=== PATIENT | male | born 1945 | race Caucasian/White ===

== ENCOUNTER 2016-11-27 12:46 | Emergency (ER) | payer MEDICARE, BC ==
[2016-11-27] MEDS ORDERED: Heparin 5,000 UNITS/ML VIAL ONE (13:45)
[2016-11-27 13:52] LABS: #Basophils 0.1 thou/uL (0.0-0.2); #Eosinphils 0.3 thou/uL (0.0-0.7); #Lymphocytes 2.2 thou/uL (1.20-3.40); #Neutrophils 12.4 thou/uL (1.40-6.50); %Basophils 0.6 % (0.0-1.0); %Eosinophils 2.2 % (0.0-10.0); Hematocrit 35.5 % (42.0-52.0); Mean Platelet Volume 6.8 fL (7.4-10.4); Red Blood Cell (RBC) Count 4.06 mill/uL (4.70-6.10)
[2016-11-27] MEDS ORDERED: Heparin 20,000 units/D5W 500 ML ONE (13:52)
[2016-11-27 13:54] LABS: PTT 25.9 SEC (22.9-36.1); Prothrombin Time 16.2 SEC (12.0-14.7)
[2016-11-27 14:03] LABS: ALT (SGPT) 18 U/L (0-55); AST (SGOT) 13 U/L (5-34); Alkaline Phosphatase 158 U/L (40-150); Anion Gap 17 mmol/L (10-20); BUN (Urea Nitrogen) 17 mg/dL (8.4-25.7); Bilirubin, Total 0.6 mg/dL (0.2-1.2); Calc. Creatinine Clearance 0 mL/min (70-130); Calcium 9.9 mg/dL (7.8-10.44); Carbon Dioxide 24 mmol/L (23-31); Chloride 97 mmol/L (98-107); Estimated GFR-MDRD 81; Globulin 3.3 g/dL (2.4-3.5); Protein, Total 7.5 g/dL (5.8-8.1)
--- NOTE | 2016-11-27 15:11 | ERRECORD ---
[facility] EMERGENCY RECORD HPI EXTREMITY (14:10 DHAM) CHIEF COMPLAINT: Patient presents for evaluation of pain, to the left lower leg, Patient presents for evaluation of swelling, to the left lower leg. HISTORIAN: History provided by patient, 2 Days of left calf pain after walking "about 100 yards." He has never had claudication before. Today he awoke to find swelling at the left ankle and mildly to left foot and "my toes were blue.". MECHANISM OF INJURY: Mechanism of injury is unknown. LOCATION: Symptoms are localized, most severe in the left lower leg. QUALITY: really no pain. SEVERITY: Maximum severity of pain rated as 8/10, Current severity of pain rated as 0/10, Pain was while walking yesterday and this morning. TIME COURSE: Gradual onset of symptoms, 2, days priror to arrival, Symptoms are worsening, see above, are intermittent. ASSOCIATED WITH: No associated alcohol use, No associated chills, No associated decreased use, No associated distal injury, No associated distal neuro complaint, No associated erythema, No associated fever, No associated inability to ambulate, No associated inability to bear weight, No associated numbness, No associated open wounds, No associated proximal injury, No associated tingling, No associated warmth, left 5th toe blue this morning. EXACERBATED BY: Patient's condition exacerbated by walking. RELIEVED BY: Patient's condition relieved by rest. ROS (14:20 DHAM) CONSTITUTIONAL: Historian denies chills, denies fever, denies lethargy. ENT: recently was diagnosed with a neck mass and has appt with oncology tomorrow at [facility]. CARDIOVASCULAR: Historian denies chest pain, denies diaphoresis, denies dyspnea on exertion, reports exercise intolerance. no jugular venous distention, Historian denies syncope, denies palpitations. RESPIRATORY: Historian denies cough, denies shortness of breath, denies sputum, denies wheezing. GI: Historian denies abdominal pain, denies diarrhea, denies nausea, denies vomiting. GENITOURINARY MALE: Historian denies dysuria, denies urinary frequency, denies urinary urgency. MUSCULOSKELETAL: Historian denies arthralgias, denies fall, denies injury, denies joint redness, denies joint stiffness, denies joint swelling, reports myalgias. left calf pain with walking but none now. SKIN: Historian denies rash, reports skin changes. NEUROLOGIC: Historian denies confusion, denies dizziness, denies focal weakness, denies gait changes, denies mental status changes, denies paralysis, denies paresthesias, denies sensory changes. &a-1R&a+25V*p+0X*[id number]*c202B*c15G*c2P*p-0X&a-25V&a+1R Name: Luis Antonio Ro : 1945 M71 MedRec: [id number] AcctNum: [id number] Prepared: Sat Nov 27, 2016 22:51 by Interface Page 1 of 5 pMD [facility] EMERGENCY RECORD ENDOCRINE: Historian denies cold intolerance, denies polydipsia. HEMO/LYMPHATIC: Historian denies abnormal blood clotting, denies easy bruising. see ENT above. ALLERGIC/IMMUNOLOGIC: Historian denies eczema, denies hives. PAST MEDICAL HISTORY MEDICAL HISTORY: Flu vaccine up to date, Tetanus not up to date, Pneumococcal vaccine up to date, Past medical history includes gastrointestinal disease, gastroesophageal reflux disease, Past medical history includes history of hyperlipidemia, Past medical history includes history of hypertension. (13:17 RHIC) MALE SURGICAL HISTORY: Surgical history of appendectomy. (13:17 RHIC) PSYCHIATRIC HISTORY: No previous psychiatric history. (13:17 RHIC) SOCIAL HISTORY: Patient denies alcohol use, Patient denies drug use, Patient has no smoking history. (13:17 RHIC) NOTES: I have reviewed the nursing documentation regarding PMHX, social hx, family hx, and surgical history as well as vitals and triage notes and agree. (14:10 DHAM) KNOWN ALLERGIES No Known Drug Allergies CURRENT MEDICATIONS lisinopril: TABLET : Strength - 10 mg : ORAL Patient Dose: unk mg Oral. (13:43 AHOO) Crestor: TABLET : Strength - 10 mg : ORAL Patient Dose: unk Oral. (13:43 AHOO) omeprazole: CAPSULE,DELAYED RELEASE (ENTERIC COATED) : Strength - 10 mg : ORAL Patient Dose: Unknown. (13:43 AHOO) diclofenac sodium: TABLET, DELAYED RELEASE (ENTERIC COATED) : Strength - 75 mg : ORAL Patient Dose: 1 tab(s) Oral 2 times a day (with meals).as needed for pain. (13:43 AHOO) Soma: TABLET : Strength - 350 mg : ORAL Patient Dose: 1 tab(s) Oral 1 to 3 times a day.Muscle relaxant. (13:43 AHOO) Ultram: TABLET : Strength - 50 mg : ORAL Patient Dose: 1-2 tab(s) Oral every 8 hours PRN.for pain. (13:43 AHOO) HYDROcodone-acetaminophen: TABLET : Strength - 10 mg-325 mg : ORAL Patient Dose: 1 cap(s) Oral every 6 hours PRN. (13:44 AHOO) &a-1R&a+25V*p+0X*[id number]*c202B*c15G*c2P*p-0X&a-25V&a+1R Name: Luis Antonio Ro : 1945 M71 MedRec: [id number] AcctNum: [id number] Prepared: Sat Nov 27, 2016 22:51 by Interface Page 2 of 5 pMD [facility] EMERGENCY RECORD VITAL SIGNS VITAL SIGNS: BP: 115/76, Pulse: 70, Resp: 18, Temp: 97.7 (Oral), Pain: 8, O2 sat: 97 on Room Air, Time: 11/27/2016 13:17. (13:17 RHIC) BP: 146/71, Pulse: 70, Resp: 18, Pain: 0, O2 sat: 97 on Room Air, Time: 11/27/2016 14:17. (14:17 AHOO) BP: 136/81, Pulse: 69, Resp: 18, Temp: 98.2 (Oral), Pain: 0, O2 sat: 97 on Room Air, Time: 11/27/2016 14:46. (14:46 AHOO) PHYSICAL EXAM (14:32 DHAM) CONSTITUTIONAL: Vital signs reviewed, Patient afebrile, Pulse normal, Blood pressure normal, Respiratory rate normal, Patient appears non toxic, Patient appears pain free, Patient alert and oriented to person, place and time. HEAD: Head exam included findings of head atraumatic, normocephalic. EYES: Eye exam included findings of eyelids normal to inspection, Pupils equally round and reactive to light, Extraocular muscles intact, Conjunctiva normal, Sclera normal, Fundoscopic exam normal. ENT: ENT exam normal. NECK: Neck exam included findings of normal range of motion, Trachea midline, no meningeal signs. RESPIRATORY CHEST: Respiratory exam included findings of no respiratory distress, Breath sounds clear, No wheezing, No rales, No rhonchi. CARDIOVASCULAR: Cardiovascular exam included findings of heart rate regular rate and rhythm, Heart sounds normal, normal S1, normal S2, no murmurs, no rub, no gallop, Femoral pulses normal, Pedal pulses, I cannot palpate DP or PT bilat. I can Doppler the right DP and PT and left Posterior tib. The left Dorsalis pedis is no dopplerable. see LE. ABDOMEN MALE: Abdominal exam included findings of abdomen nontender, Bowel sounds normal, Liver normal, Spleen normal, no mass, no pulsatile masses, no peritoneal signs, no rigidity, no guarding, no rebound, no ventral hernia. BACK: Back exam included findings of normal inspection, range of motion normal. UPPER EXTREMITY: Upper extremity exam normal. LOWER EXTREMITY: Pt has full pain free ROM at hips, knees, ankles and all toes. His pulses are diffusely decreased and cap refill is 5-6 seconds diffusely in the left foot with palor and cyanosis of toenails. The right foot also has cap refill that is delayed though only 2-3 sec. The left foot does NOT feel cooler than the right and the feet are cool bilat. The left 5th toe is cyanotic with the 4th toe having a small area at distal tip that looks more cyanotic. NONE of these look purpuric. motor and sensory exams normal bilat. Eft calf calf is 36cm and right is 34 at 10 cm below tibial tubercle. NEURO: [place] coma scale 15, Neuro exam findings include patient oriented to person, place and time, Speech normal, Gait normal, Memory normal, Cranial nerves intact, Deep tendon reflexes normal, no &a-1R&a+25V*p+0X*[id number]*c202B*c15G*c2P*p-0X&a-25V&a+1R Name: Luis Antonio Ro : 1945 M71 MedRec: [id number] AcctNum: [id number] Prepared: Desean Nov 27, 2016 22:51 by Interface Page 3 of 5 pMD [facility] EMERGENCY RECORD focal motor deficits, no focal sensory deficits, hard of hearing. SKIN: Skin exam included findings of skin warm, dry, and normal in color, no rash, see above. LYMPHATIC: Lymphatic exam normal. PSYCHIATRIC: Psychiatric exam included findings of patient oriented to person place and time, Normal affect, Judgment normal, Insight normal, Remote memory normal, Recent memory normal. MEDICATION ADMINISTRATION SUMMARY Drug Name: heparin (porcine) intravenous, Dose Ordered: 1000 units/hr, Route: IV Fluid Infusion, Status: Given, Time: 14:04 11/27/2016, Drug Name: heparin (porcine) in NaCl (PF), Dose Ordered: 5000 units, Route: IV Push, Status: Given, Time: 13:50 11/27/2016, Drug Name: Adult Low Dose Aspirin, Dose Ordered: 4 tab(s), Route: Oral, Status: Given, Time: 13:47 11/27/2016, Detailed record available in Medication Service section. DOCTOR NOTES (14:23 DHAM) TEXT: Wells score for DVT is 3 (if we say that pt does have an active cancer, but this is not certain at this time per patient). His exam looks primarily venous with calf enlargement and collateral veins. However, his left dorsalis pedis is absent and the foot has decreased capillary refill and left 5th toe suggests arterial occlusion. The absence of pain would certainly suggest this is not an acute arterial occlusion. We have covered with ASA and heparin 5000 bolus/1000 per hour. I have discussed the pt with Dr Noland at 1325 who accepts the pt in transfer to [facility]. He asks that we do a CTA of the leg as well. This was ordered but I have received a call from Dr. Cox who reports that he doesn't think our CT can accomplish this reliably and recommends that we get it done in [place]. Pt and family aware. Wells score for DVT is 3 (if we say that pt does have an active cancer, but this is not certain at this time per patient). His exam looks primarily venous with calf enlargement and collateral veins. However, his left dorsalis pedis is absent and the foot has decreased capillary refill and left 5th toe suggests arterial occlusion. The absence of pain would certainly suggest this is not an acute arterial occlusion. We have covered with ASA and heparin 5000 bolus/1000 per hour. I have discussed the pt with Dr Noland at. PROBLEM LIST No recorded problems DIAGNOSIS (14:50 DHAM) FINAL: PRIMARY: deep venous thrombosis, ADDITIONAL: peripheral artery disease. &a-1R&a+25V*p+0X*[id number]*c202B*c15G*c2P*p-0X&a-25V&a+1R Name: Luis Antonio Ro : 1945 M71 MedRec: [id number] AcctNum: [id number] Prepared: Desean Nov 27, 2016 22:51 by Interface Page 4 of 5 pMD [facility] EMERGENCY RECORD PRESCRIPTION No recorded prescriptions DISPOSITION PATIENT: Disposition Type: Transfer, Disposition: Transfer to [facility]. (14:50 DHAM) Patient left the department. (15:03 [facility]) Antonio: AHOO=CORNELIO Jose, February DHAM=MD Alyx, Karlos IC=YAMILETH Flores, Emily &a-1R&a+25V*p+0X*[id number]*c202B*c15G*c2P*p-0X&a-25V&a+1R Name: Luis Antonio Ro : 1945 M71 MedRec: [id number] AcctNum: [id number] Prepared: Desean Nov 27, 2016 22:51 by Interface Page 5 of 5 pMD MTDD
--- NOTE | 2016-11-27 15:16 | PICIS ---
[facility] EMERGENCY RECORD TRIAGE ([facility] Nov 27, 2016 12:57 RHIC) TRIAGE NOTES: LEFT LEG PAIN X 2 DAYS. SWELLING TODAY. ([facility] Nov 27, 2016 12:57 RHIC) PATIENT: NAME: Luis Antonio Ro, AGE: 71, GENDER: male, : Tue1945, TIME OF GREET: Sat Nov 27, 2016 12:48, PREFERRED LANGUAGE: Czech, ETHNICITY: Not or , ECODE BILLING MAP: [facility], SSN: [id number], Zip Code: [address], PHONE: , , , PERSON ID: [id number], PAYMENT: [employer] Medicare, PCP: DANIEL. ([facility] Nov 27, 2016 12:57 RHIC) KG WEIGHT: 77.1 (est.). (13:16 RHIC) COMPLAINT: Left Leg Pain. ([facility] Nov 27, 2016 12:57 RHIC) ADMISSION: URGENCY: 4 Non Urgent, ADMISSION SOURCE: Home, TRANSPORT: CAR, BED: ER -02. ([facility] Nov 27, 2016 12:57 RHIC) IMMUNIZATIONS: Flu vaccine up to date, Tetanus immunization up to date, Pneumococcal vaccine up to date. (13:17 RHIC) SIRS SCORING: Heart Rate 55-109 (0), Temp range 96.8-101.1 (0), respiratory rate 12-24 (0), Mental Status altered: no (0). (13:17 RHIC) TRIAGE SCREENING: Patient denies suicidal ideation, Patient denies presence of domestic violence. (13:17 RHIC) TREATMENTS IN PROGRESS: Treatments given Prehospital: VICODIN X 2. (13:17 RHIC) PROVIDERS: TRIAGE NURSE: Emily Flores RN. ([facility] Nov 27, 2016 12:57 RHIC) PREVIOUS VISIT ALLERGIES: No Known Drug Allergies. ([facility] Nov 27, 2016 12:57 RHIC) No Known Drug Allergies. (13:17 RHIC) KNOWN ALLERGIES No Known Drug Allergies CURRENT MEDICATIONS lisinopril: TABLET : Strength - 10 mg : ORAL Patient Dose: unk mg Oral. (13:43 AHOO) Crestor: TABLET : Strength - 10 mg : ORAL Patient Dose: unk Oral. (13:43 AHOO) omeprazole: CAPSULE,DELAYED RELEASE (ENTERIC COATED) : Strength - 10 mg : ORAL Patient Dose: Unknown. (13:43 AHOO) diclofenac sodium: TABLET, DELAYED RELEASE (ENTERIC COATED) : Strength - 75 mg : ORAL Patient Dose: 1 tab(s) Oral 2 times a day (with meals).as needed for pain. (13:43 AHOO) Soma: TABLET : Strength - 350 mg : ORAL Patient Dose: 1 tab(s) Oral 1 to 3 times a day.Muscle relaxant. (13:43 AHOO) &a-1R&a+25V*p+0X*c8942S*c202B*c15G*c2P*p-0X&a-25V&a+1R Name: Luis Antonio Ro : 1945 M71 MedRec: [id number] AcctNum: [id number] Prepared: Sat Nov 27, 2016 22:57 by Interface Page [address] [facility] EMERGENCY RECORD Ultram: TABLET : Strength - 50 mg : ORAL Patient Dose: 1-2 tab(s) Oral every 8 hours PRN.for pain. (13:43 AHOO) HYDROcodone-acetaminophen: TABLET : Strength - 10 mg-325 mg : ORAL Patient Dose: 1 cap(s) Oral every 6 hours PRN. (13:44 AHOO) VITAL SIGNS VITAL SIGNS: BP: 115/76, Pulse: 70, Resp: 18, Temp: 97.7 (Oral), Pain: 8, O2 sat: 97 on Room Air, Time: 11/27/2016 13:17. (13:17 RHIC) BP: 146/71, Pulse: 70, Resp: 18, Pain: 0, O2 sat: 97 on Room Air, Time: 11/27/2016 14:17. (14:17 AHOO) BP: 136/81, Pulse: 69, Resp: 18, Temp: 98.2 (Oral), Pain: 0, O2 sat: 97 on Room Air, Time: 11/27/2016 14:46. (14:46 AHOO) NURSING ASSESSMENT: EXTREMITY LOWER (13:00 RHIC) CONSTITUTIONAL: Patient arrives ambulatory, Gait steady, History obtained from patient, Patient appears comfortable, Patient cooperative, Patient alert, Oriented to person, place and time, Skin warm, Skin dry, Skin normal in color, Mucous membranes pink, Mucous membranes moist. PAIN: to the left lower leg. LEFT LOWER EXTREMITY: Left lower extremity assessment findings include capillary refill greater than 2 seconds, 5-6 SEC, Skin color, blue, to TOES, Skin temperature warm, Distal sensation intact, Muscle tone normal, muscle strength 0, dorsalis pedis pulse is absent, Leg circumference: 34. RIGHT LOWER EXTREMITY: Right lower extremity assessment findings include capillary refill less than 2 seconds, Skin color normal, Skin temperature warm, Distal sensation intact, Muscle tone normal, dorsalis pedis pulse is +2, Leg circumference: 36. NURSING ASSESSMENT: FALL RISK (14:21 AHOO) FALL RISK: Total score 0. HENDRICH II FALL RISK: male(1), Total score 1. NURSING ASSESSMENT: SKIN (13:26 AHOO) CONSTITUTIONAL: Patient arrives ambulatory, Gait steady, History obtained from patient, Patient appears comfortable, Patient cooperative, Patient alert, Oriented to person, place and time, Skin warm, Skin dry, Skin, with peripheral cyanosis, Mucous membranes pink, Mucous membranes moist, Patient is well-groomed. PAIN: aching pain, constant, on a scale 0-10 patient rates pain as 8. SKIN: Skin assessment findings include skin warm, Skin dry, Skin, with peripheral cyanosis. JOSEE SCALE: (4) Sensory perception has no impairment, (4) Skin &a-1R&a+25V*p+0X*z7417T*c202B*c15G*c2P*p-0X&a-25V&a+1R Name: Luis Antonio Ro : 1945 M71 MedRec: [id number] AcctNum: [id number] Prepared: Sat Nov 27, 2016 22:57 by Interface Page [address] [facility] EMERGENCY RECORD is rarely moist, (4) Patient walks frequently, (4) No mobility limitations, (4) Excellent Nutrition, (3) Patient has no apparent problem moving, Josee Risk Total: 23. NURSING PROCEDURE: BEDSIDE SIRS TESTING (13:25 AHOO) SCORES: Heart Rate 55-109 (0), Temp range 96.8-101.1 (0), respiratory rate 12-24 (0), Latest WBC 3-14.9 (0), Mental Status altered: no (0), Infection or Suspected Infection: No. Heart Rate 55-109 (0), Temp range 96.8-101.1 (0), respiratory rate 12-24 (0), Latest WBC 15-19.9 (1), Mental Status altered: no (0), Infection or Suspected Infection: No. NURSING PROCEDURE: IV PATIENT IDENITIFIER: Patient actively involved in identification process, Patient's identity verified by patient stating name, Patient's identity verified by patient stating date, Patient's identity verified by hospital ID malik, Patient's identity verified by family member. (13:35 AHOO) IV SITE 1: IV therapy indicated for medication administration, IV established, to the left antecubital, using an 18 gauge catheter, in one attempt, Saline lock established, Flushed with normal saline (mls): 10ML, Labs drawn at time of placement, labeled in the presence of the patient and sent to lab. (13:35 AHOO) FOLLOW-UP SITE 1: After procedure, 2x2 dressing applied, After procedure, no drainage at IV site, After procedure, no swelling at IV site, After procedure, no redness at IV site, Notes: IV PATENT AND INFUSING UPON TRANSFER. (14:53 AHOO) NURSING PROCEDURE: TRANSFER TRANSFER: Reason for transfer need for specialized care, Diagnosis: ISCHEMIC LIMB, Accepting institution: [facility], Accepting physician: DR NOLAND, Referring physician: DR COLON, Transported by urgent ambulance, accompanied by emergency medical services personnel, Summary of Care printed, Copy of patient record prepared for receiving facility, Copy of diagnostic studies, Medication reconciliation form prepared and sent to receiving facility, Patient consent for transfer signed, Family member contacted, PT AT BEDSIDE AND NOTIFIED., Notes: 1323 CALLED TRANSFER CENTER AND SPOKE WITH FRANCESCA, 1328 DR NOLAND ACCEPTED, 1328 ACCEPTING AD IS [facility], DELAY IN CALLING EMS AFTER MD GOT ACCEPTANCE HE ORDERED MULTIPLE TESTS AND MEDS TO GIVE. 1356 CALLED EMS SPOKE WITH LISA THEY DO NOT HAVE A TRUCK AVAILABLE AT THIS TIME. 1425 CALLED EMS THEY SAID THEY SENT A TRUCK AND IT SHOULD BE HERE SOON ETA UNKNOWN AT THIS TIME. (14:22 AHOO) Notes: 1447 EMS ARRIVED, 1457 EMS LEFT WITH THE PT. (14:57 AHOO) Report called to receiving facility, IDA CARSON, Provided opportunity to answer questions, Bed assigned ER. (15:00 AHOO) ORDER DETAILS &a-1R&a+25V*p+0X*p4833T*c202B*c15G*c2P*p-0X&a-25V&a+1R Name: Luis Antonio Ro : 1945 M71 MedRec: [id number] AcctNum: [id number] Prepared: Sat Nov 27, 2016 22:57 by Interface Page [address] [facility] EMERGENCY RECORD Order Name: CBC with Differential, Status: Active, Time: 13:25 11/27/2016, User: MONA, - Ordered for: MD Colon Darren, - Entered by: MD Colon Darren - Sat Nov 27, 2016 13:25, - Quantity: 1, Order Name: Comprehensive Metabolic Panel, Status: Active, Time: 13:25 11/27/2016, User: MONA, - Ordered for: MD Colon Darren, - Entered by: MD Colon Darren - Sat Nov 27, 2016 13:25, - Quantity: 1, Order Name: CTA Angio Lwr Ext Lt W WO, Status: Canceled, Time: 14:16 11/27/2016, User: System, - Ordered for: MD Colon Darren, - Entered by: MD Colon Darren - Sat Nov 27, 2016 14:05, - Quantity: 1, Order Name: D-Dimer (Quantitative), Status: Active, Time: 13:25 11/27/2016, User: MONA, - Ordered for: MD Colon Darren, - Entered by: MD Colon Darren - Sat Nov 27, 2016 13:25, - Quantity: 1, Order Name: Lactic Acid with repeat, Status: Active, Time: 13:25 11/27/2016, User: MONA, - Ordered for: MD Colon Darren, - Entered by: MD Colon Darren - Sat Nov 27, 2016 13:25, - Quantity: 1, Order Name: Protime with INR, Status: Active, Time: 13:25 11/27/2016, User: MONA, - Ordered for: MD Colon Darren, - Entered by: MD Colon Darren - Sat Nov 27, 2016 13:25, - Quantity: 1, Order Name: PTT, Status: Active, Time: 13:25 11/27/2016, User: MONA, - Ordered for: MD Colon Darren, - Entered by: MD Colon Darren - Sat Nov 27, 2016 13:25, - Quantity: 1, Order Name: SALINE LOCK, Status: Done, Time: 13:41 11/27/2016, User: NOEMY, - Ordered for: MD Colon Darren, - Entered by: MD Colon Darren - Sat Nov 27, 2016 13:25, - Quantity: 1. MEDICATION ADMINISTRATION SUMMARY Drug Name: heparin (porcine) intravenous, Dose Ordered: 1000 units/hr, Route: IV Fluid Infusion, Status: Given, Time: 14:04 11/27/2016, Drug Name: heparin (porcine) in NaCl (PF), Dose Ordered: 5000 units, Route: IV Push, Status: Given, Time: 13:50 11/27/2016, Drug Name: Adult Low Dose Aspirin, Dose Ordered: 4 tab(s), Route: Oral, Status: Given, Time: 13:47 11/27/2016, Detailed record available &a-1R&a+25V*p+0X*g1902E*c202B*c15G*c2P*p-0X&a-25V&a+1R Name: Luis Antonio Ro : 1945 M71 MedRec: [id number] AcctNum: [id number] Prepared: Sat Nov 27, 2016 22:57 by Interface Page [address] [facility] EMERGENCY RECORD in Medication Service section. MEDICATION SERVICE Adult Low Dose Aspirin: Order: Adult Low Dose Aspirin (aspirin) - Dose: 4 tab(s) : Oral Schedule: Now Ordered by: Karlos Colon MD Entered by: Karlos Colon MD Sat Nov 27, 2016 13:34 , Acknowledged by: Radha Jose LVN Sat Nov 27, 2016 13:44 Documented as given by: Radha Jose LVN Sat Nov 27, 2016 13:47 Patient, Medication, Dose, Route and Time verified prior to administration. Amount given: 4 TABS, Correct patient, time, route, dose and medication confirmed prior to administration, Patient advised of actions and side-effects prior to administration, Allergies confirmed and medications reviewed prior to administration, Patient in position of comfort, Side rails up, Cart in lowest position, Family at bedside, I VERIFIED WITH ER MD THAT HE WANTS BABY ASA 81MG 4 TABS PO. heparin (porcine) in NaCl (PF): Order: heparin (porcine) in NaCl (PF) (heparin sodium,porcine/0.9 % sodium chloride/preservative free) - Dose: 5000 units : IV Push Schedule: Now Ordered by: Karlos Colon MD Entered by: Karlos Colon MD Sat Nov 27, 2016 13:30 , Acknowledged by: Radha Jose LVN Sat Nov 27, 2016 13:44 Documented as given by: Radha Jose LVN Sat Nov 27, 2016 13:50 Patient, Medication, Dose, Route and Time verified prior to administration. Amount given: 5000UNITS, IV SITE #1 IVP, initial medication, Slowly, Awake and alert- acceptable, Catheter placement confirmed via flush prior to administration, IV site without signs or symptoms of infiltration during medication administration, No swelling during administration, No drainage during administration, IV flushed after administration, Correct patient, time, route, dose and medication confirmed prior to administration, Patient advised of actions and side-effects prior to administration, Allergies confirmed and medications reviewed prior to administration, Patient in position of comfort, Side rails up, Cart in lowest position, Family at bedside, Co-signed by: Emily Flores RN Sat Nov 27, 2016 14:05. : Follow Up : Response assessment performed, No signs or symptoms of allergic reaction noted, _IV SITE #1:_. (14:50 AHOO) heparin (porcine) intravenous: Order: heparin (porcine) intravenous (heparin sodium,porcine) - Dose: 1000 units/hr : IV Fluid Infusion Schedule: Now Ordered by: Karlos Colon MD Entered by: Karlos Colon MD Sat Nov 27, 2016 13:33 , Acknowledged by: Radha Jose LVN Sat Nov 27, 2016 13:44 Documented as given by: Emily Flores RN Sat Nov 27, 2016 14:04 Patient, Medication, Dose, Route and Time verified prior to &a-1R&a+25V*p+0X*v6117Y*c202B*c15G*c2P*p-0X&a-25V&a+1R Name: Luis Antonio Ro : 1945 M71 MedRec: [id number] AcctNum: [id number] Prepared: Sat Nov 27, 2016 22:57 by Interface Page [address] [facility] EMERGENCY RECORD administration. IV SITE #1 IVPB or drip, Catheter placement confirmed via flush prior to administration, IV site without signs or symptoms of infiltration during medication administration, No swelling during administration, No drainage during administration, IV flushed after administration, Correct patient, time, route, dose and medication confirmed prior to administration, Patient advised of actions and side-effects prior to administration, Allergies confirmed and medications reviewed prior to administration, Patient in position of comfort, Side rails up, Cart in lowest position, Family at bedside, Co-signed by: aRdha Jose LVN Sat Nov 27, 2016 14:05. : Follow Up : Response assessment performed, No signs or symptoms of allergic reaction noted, _IV SITE #1:_, Medication infusion continued upon transfer from emergency department, on Sat Nov 27, 2016 14:52, 50 minutes, ., Total amount infused: 21CC. (14:52 AHOO) HPI EXTREMITY (14:10 DHAM) CHIEF COMPLAINT: Patient presents for evaluation of pain, to the left lower leg, Patient presents for evaluation of swelling, to the left lower leg. HISTORIAN: History provided by patient, 2 Days of left calf pain after walking "about 100 yards." He has never had claudication before. Today he awoke to find swelling at the left ankle and mildly to left foot and "my toes were blue.". MECHANISM OF INJURY: Mechanism of injury is unknown. LOCATION: Symptoms are localized, most severe in the left lower leg. QUALITY: really no pain. SEVERITY: Maximum severity of pain rated as 8/10, Current severity of pain rated as 0/10, Pain was while walking yesterday and this morning. TIME COURSE: Gradual onset of symptoms, 2, days priror to arrival, Symptoms are worsening, see above, are intermittent. ASSOCIATED WITH: No associated alcohol use, No associated chills, No associated decreased use, No associated distal injury, No associated distal neuro complaint, No associated erythema, No associated fever, No associated inability to ambulate, No associated inability to bear weight, No associated numbness, No associated open wounds, No associated proximal injury, No associated tingling, No associated warmth, left 5th toe blue this morning. EXACERBATED BY: Patient's condition exacerbated by walking. RELIEVED BY: Patient's condition relieved by rest. ROS (14:20 DHAM) CONSTITUTIONAL: Historian denies chills, denies fever, denies lethargy. ENT: recently was diagnosed with a neck mass and has appt with oncology tomorrow at [facility]. CARDIOVASCULAR: Historian denies chest pain, denies diaphoresis, &a-1R&a+25V*p+0X*s9501S*c202B*c15G*c2P*p-0X&a-25V&a+1R Name: Luis Antonio Ro : 1945 M71 MedRec: [id number] AcctNum: [id number] Prepared: Sat Nov 27, 2016 22:57 by Interface Page [address] [facility] EMERGENCY RECORD denies dyspnea on exertion, reports exercise intolerance. no jugular venous distention, Historian denies syncope, denies palpitations. RESPIRATORY: Historian denies cough, denies shortness of breath, denies sputum, denies wheezing. GI: Historian denies abdominal pain, denies diarrhea, denies nausea, denies vomiting. GENITOURINARY MALE: Historian denies dysuria, denies urinary frequency, denies urinary urgency. MUSCULOSKELETAL: Historian denies arthralgias, denies fall, denies injury, denies joint redness, denies joint stiffness, denies joint swelling, reports myalgias. left calf pain with walking but none now. SKIN: Historian denies rash, reports skin changes. NEUROLOGIC: Historian denies confusion, denies dizziness, denies focal weakness, denies gait changes, denies mental status changes, denies paralysis, denies paresthesias, denies sensory changes. ENDOCRINE: Historian denies cold intolerance, denies polydipsia. HEMO/LYMPHATIC: Historian denies abnormal blood clotting, denies easy bruising. see ENT above. ALLERGIC/IMMUNOLOGIC: Historian denies eczema, denies hives. PAST MEDICAL HISTORY MEDICAL HISTORY: Flu vaccine up to date, Tetanus not up to date, Pneumococcal vaccine up to date, Past medical history includes gastrointestinal disease, gastroesophageal reflux disease, Past medical history includes history of hyperlipidemia, Past medical history includes history of hypertension. (13:17 RHIC) MALE SURGICAL HISTORY: Surgical history of appendectomy. (13:17 RHIC) PSYCHIATRIC HISTORY: No previous psychiatric history. (13:17 RHIC) SOCIAL HISTORY: Patient denies alcohol use, Patient denies drug use, Patient has no smoking history. (13:17 RHIC) NOTES: I have reviewed the nursing documentation regarding PMHX, social hx, family hx, and surgical history as well as vitals and triage notes and agree. (14:10 DHAM) PHYSICAL EXAM (14:32 DHAM) CONSTITUTIONAL: Vital signs reviewed, Patient afebrile, Pulse normal, Blood pressure normal, Respiratory rate normal, Patient appears non toxic, Patient appears pain free, Patient alert and oriented to person, place and time. HEAD: Head exam included findings of head atraumatic, normocephalic. EYES: Eye exam included findings of eyelids normal to inspection, Pupils equally round and reactive to light, Extraocular muscles intact, Conjunctiva normal, Sclera normal, Fundoscopic exam normal. ENT: ENT exam normal. NECK: Neck exam included findings of normal range of motion, &a-1R&a+25V*p+0X*n7108S*c202B*c15G*c2P*p-0X&a-25V&a+1R Name: Luis Antonio Ro : 1945 M71 MedRec: [id number] AcctNum: [id number] Prepared: Sat Nov 27, 2016 22:57 by Interface Page [address] [facility] EMERGENCY RECORD Trachea midline, no meningeal signs. RESPIRATORY CHEST: Respiratory exam included findings of no respiratory distress, Breath sounds clear, No wheezing, No rales, No rhonchi. CARDIOVASCULAR: Cardiovascular exam included findings of heart rate regular rate and rhythm, Heart sounds normal, normal S1, normal S2, no murmurs, no rub, no gallop, Femoral pulses normal, Pedal pulses, I cannot palpate DP or PT bilat. I can Doppler the right DP and PT and left Posterior tib. The left Dorsalis pedis is no dopplerable. see LE. ABDOMEN MALE: Abdominal exam included findings of abdomen nontender, Bowel sounds normal, Liver normal, Spleen normal, no mass, no pulsatile masses, no peritoneal signs, no rigidity, no guarding, no rebound, no ventral hernia. BACK: Back exam included findings of normal inspection, range of motion normal. UPPER EXTREMITY: Upper extremity exam normal. LOWER EXTREMITY: Pt has full pain free ROM at hips, knees, ankles and all toes. His pulses are diffusely decreased and cap refill is 5-6 seconds diffusely in the left foot with palor and cyanosis of toenails. The right foot also has cap refill that is delayed though only 2-3 sec. The left foot does NOT feel cooler than the right and the feet are cool bilat. The left 5th toe is cyanotic with the 4th toe having a small area at distal tip that looks more cyanotic. NONE of these look purpuric. motor and sensory exams normal bilat. Eft calf calf is 36cm and right is 34 at 10 cm below tibial tubercle. NEURO: Yony coma scale 15, Neuro exam findings include patient oriented to person, place and time, Speech normal, Gait normal, Memory normal, Cranial nerves intact, Deep tendon reflexes normal, no focal motor deficits, no focal sensory deficits, hard of hearing. SKIN: Skin exam included findings of skin warm, dry, and normal in color, no rash, see above. LYMPHATIC: Lymphatic exam normal. PSYCHIATRIC: Psychiatric exam included findings of patient oriented to person place and time, Normal affect, Judgment normal, Insight normal, Remote memory normal, Recent memory normal. EVENTS TRANSFER: Triage to Emergency Emergency Room -02. (Sat Nov 27, 2016 12:57 RHIC) Removed from Emergency Emergency Room -02. (15:03 [facility]) O2SAT INTERPRETATION (14:32 [facility]) O2SAT: Single pulse oximetry, Oxygen saturation 97%, on room air, Oxygen saturation interpretation: Normal, No intervention required. DOCTOR NOTES (14:23 DHAM) TEXT: Wells score for DVT is 3 (if we say that pt does have &a-1R&a+25V*p+0X*p3383C*c202B*c15G*c2P*p-0X&a-25V&a+1R Name: Luis Antonio Ro : 1945 M71 MedRec: [id number] AcctNum: [id number] Prepared: Sat Nov 27, 2016 22:57 by Interface Page [address] [facility] EMERGENCY RECORD an active cancer, but this is not certain at this time per patient). His exam looks primarily venous with calf enlargement and collateral veins. However, his left dorsalis pedis is absent and the foot has decreased capillary refill and left 5th toe suggests arterial occlusion. The absence of pain would certainly suggest this is not an acute arterial occlusion. We have covered with ASA and heparin 5000 bolus/1000 per hour. I have discussed the pt with Dr Noland at 1325 who accepts the pt in transfer to [facility]. He asks that we do a CTA of the leg as well. This was ordered but I have received a call from Dr. Cox who reports that he doesn't think our CT can accomplish this reliably and recommends that we get it done in [place]. Pt and family aware. Wells score for DVT is 3 (if we say that pt does have an active cancer, but this is not certain at this time per patient). His exam looks primarily venous with calf enlargement and collateral veins. However, his left dorsalis pedis is absent and the foot has decreased capillary refill and left 5th toe suggests arterial occlusion. The absence of pain would certainly suggest this is not an acute arterial occlusion. We have covered with ASA and heparin 5000 bolus/1000 per hour. I have discussed the pt with Dr Noland at. PROBLEM LIST No recorded problems DIAGNOSIS (14:50 DHAM) FINAL: PRIMARY: deep venous thrombosis, ADDITIONAL: peripheral artery disease. DISPOSITION PATIENT: Disposition Type: Transfer, Disposition: Transfer to [facility]. (14:50 DHAM) Patient left the department. (15:03 AHOO) PRESCRIPTION No recorded prescriptions IMAGING CONSENTS: Image captured from scanner. (14:57 AHOO) *MEMORANDUM OF TRANSFER: Image captured from scanner. (14:58 AHOO) PHYSICIAN CERTIFICATION STATEMENT: Image captured from scanner. (14:58 AHOO) *SUPPLY CHARGE SHEET: Image captured from scanner. (14:58 AHOO) ADMIN (22:50 DHAM) DIGITAL SIGNATURE: MD Alyx, Karlos. RESULTS LABORATORY: Comprehensive Metabolic Panel Collection DT: Sat Nov 27, 2016 13:47, &a-1R&a+25V*p+0X*k3778I*c202B*c15G*c2P*p-0X&a-25V&a+1R Name: Luis Antonio Ro : 1945 M71 MedRec: [id number] AcctNum: [id number] Prepared: [place] Nov 27, 2016 22:57 by Interface Page [address] [facility] EMERGENCY RECORD *Sodium 134 - L mmol/L, Range (136-145), Potassium 4.2 mmol/L, Range (3.5-5.1), *Chloride 97 - L mmol/L, Range (98-107), Carbon Dioxide 24 mmol/L, Range (23-31), Anion Gap 17 mmol/L, Range (10-20), BUN (Urea Nitrogen) 17 mg/dL, Range (8.4-25.7), Creatinine 0.92 mg/dL, Range (0.7-1.3), Estimated GFR-MDRD 81 , Reference Range for Estimated GFR: Greater than 90, mL/min/1.73 m2 NOTE: The MDRD equation has not been validated for use, with the elderly (over 70 years of age), women, patients with, serious comorbid condition or persons with extremes of body size, muscle, mass, or nutritional status. , *Glucose 248 - H mg/dL, Range (80-115), Calcium 9.9 mg/dL, Range (7.8-10.44), Bilirubin, Total 0.6 mg/dL, Range (0.2-1.2), Protein, Total 7.5 g/dL, Range (5.8-8.1), NOTE: Plasma values are generally 0.3 to 0.5 g/dL higher than serum values, due to the presence of fibrinogen. , Albumin 4.2 g/dL, Range (3.4-4.8), Globulin 3.3 g/dL, Range (2.4-3.5), Alb/Glob Ratio 1.3 g/dL, Range (1.2-2.2), *Alkaline Phosphatase 158 - H U/L, Range (40-150), AST (SGOT) 13 U/L, Range (5-34), ALT (SGPT) 18 U/L, Range (0-55). (14:08 [facility]) D-Dimer (Quantitative) Collection DT: [facility] Nov 27, 2016 13:47, See comment below , Anticoagulant? NONE Medical Necessity SUSPECT COAGULOPATHY . (14:08 [facility]) PTT Collection DT: [facility] Nov 27, 2016 13:47, See comment below , Anticoagulant? NONE Medical Necessity SUSPECT COAGULOPATHY , PTT 25.9 SEC, Range (22.9-36.1). (14:08 [facility]) Protime with INR Collection DT: [facility] Nov 27, 2016 13:47, See comment below , Anticoagulant? NONE Medical Necessity SUSPECT COAGULOPATHY , *Prothrombin Time 16.2 - H SEC, Range (12.0-14.7), INR-International Normal Ratio 1.3 , ATTENTION: READ CAREFULLY , The, recommended therapeutic ranges for oral anticoagulant treatments are: , , Low Intensity: 1.5 - 2.0 Moderate Intensity: 2.0, - 3.0 High Intensity (1): 2.5 - 3.5 &a-1R&a+25V*p+0X*[id number]*c202B*c15G*c2P*p-0X&a-25V&a+1R Name: Luis Antonio Ro : 1945 M71 MedRec: [id number] AcctNum: [id number] Prepared: [facility] Nov 27, 2016 22:57 by Interface Page [address] [facility] EMERGENCY RECORD High, Intensity (2): 3.0 - 4.0 CRITICAL: >, 4.0 . (14:08 [facility]) CBC with Differential Collection DT: [facility] Nov 27, 2016 13:47, *White Blood Cell (WBC) Count 16.0 - H thou/uL, Range (4.8-10.8), *Red Blood Cell (RBC) Count 4.06 - L mill/uL, Range (4.70-6.10), *Hemoglobin 11.7 - L g/dL, Range (14.0-18.0), *Hematocrit 35.5 - L %, Range (42.0-52.0), Mean Corpuscular Volume 87.5 fl, Range (80.0-94.0), Mean Corpuscular Hemoglobin 28.8 pg, Range (27.0-31.0), Mean Corpuscular HGB CONC 32.9 g/dL, Range (32.0-36.0), RBC Distribution Width 12.1 %, Range (11.5-14.5), Platelet Count 226 thou/uL, Range (130-400), *Mean Platelet Volume 6.8 - L fL, Range (7.4-10.4), *%Neutrophils 77.6 - H %, Range (42.0-75.0), *%Lymphocytes 13.7 - L %, Range (21.0-51.0), %Monocytes 6.0 %, Range (0.0-10.0), %Eosinophils 2.2 %, Range (0.0-10.0), %Basophils 0.6 %, Range (0.0-1.0), *#Neutrophils 12.4 - H thou/uL, Range (1.40-6.50), #Lymphocytes 2.2 thou/uL, Range (1.20-3.40), *#Monocytes 1.0 - H thou/uL, Range (0.11-0.59), #Eosinphils 0.3 thou/uL, Range (0.0-0.7), #Basophils 0.1 thou/uL, Range (0.0-0.2). (14:08 [facility]) Lactic Acid for Sepsis Collection DT: Sat Nov 27, 2016 14:04, Lactic Acid - Sepsis 1.0 mmol/L, Range (0.5-2.2). (14:51 OO) D-Dimer (Quantitative) Collection DT: Sat Nov 27, 2016 13:47, See comment below , Anticoagulant? NONE Medical Necessity SUSPECT COAGULOPATHY , *D-Dimer Test Greater than 20.00 *mcg/mL, * - H , Range (0.27-0.43), * Reference Range Units: mcg/mL of fibrinogen equivalent, units(FEU) Based upon a retrospective study of [facility] patients in March 2006, a result of Less than 0.44 mcg/mL FEU is, predictive of the absence of a DVT or PE. . (14:54 OO) PTT Collection DT: [facility] Nov 27, 2016 13:47, See comment below , Anticoagulant? NONE Medical Necessity SUSPECT COAGULOPATHY , PTT 25.9 SEC, Range (22.9-36.1). (14:54 OO) Protime with INR Collection DT: [facility] Nov 27, 2016 13:47, See comment below , Anticoagulant? NONE Medical Necessity SUSPECT COAGULOPATHY , *Prothrombin Time 16.2 - H SEC, Range (12.0-14.7), INR-International Normal Ratio 1.3 , ATTENTION: READ CAREFULLY , &a-1R&a+25V*p+0X*g6832W*c202B*c15G*c2P*p-0X&a-25V&a+1R Name: Luis Antonio Ro : 1945 M71 MedRec: [id number] AcctNum: [id number] Prepared: [facility] Nov 27, 2016 22:57 by Interface Page [address] [facility] EMERGENCY RECORD The, recommended therapeutic ranges for oral anticoagulant treatments are: , , Low Intensity: 1.5 - 2.0 Moderate Intensity: 2.0, - 3.0 High Intensity (1): 2.5 - 3.5 High, Intensity (2): 3.0 - 4.0 CRITICAL: >, 4.0 . (14:54 [facility]) Antonio: AHOO=CORNELIO Jose, February DHAM=MD Alyx, Karlos RHIC=YAMILETH Flores, Emily &a-1R&a+25V*p+0X*[id number]*c202B*c15G*c2P*p-0X&a-25V&a+1R Name: Luis Antonio Ro : 1945 M71 MedRec: [id number] AcctNum: [id number] Prepared: [facility] Nov 27, 2016 22:57 by Interface Page 12 of 12 pMD MTDD
== END 2016-11-27 14:57 | disposition short-term general hospital (02) ==
LOC: BURERS 12:46
DX: I82.402 Acute embolism and thrombosis of unspecified deep veins of left lower extremity (principal); I73.9 Peripheral vascular disease, unspecified; K21.9 Gastro-esophageal reflux disease without esophagitis; E78.5 Hyperlipidemia, unspecified; I10 Essential (primary) hypertension; Z79.899 Other long term (current) drug therapy
CPT/HCPCS: 36415; 80053; 83605; 85025; 85379; 85610; 85730; 96365; 96376; J1644

== ENCOUNTER 2017-03-01 08:47 | Outpatient (CLI) | payer MEDICARE, BC ==
[2017-03-01] MEDS ORDERED: Iopamidol 370 76% 100 ML VIAL ONE (09:00)
--- NOTE | 2017-03-01 22:45 | CT ---
CT OF THE THORAX WITH CONTRAST 03/01/[address] of the thorax was done after IV contrast in this patient with known cancer and on chemothe rapy. Comparison is made with the 11/28/[address] [facility]. The right hilar mass seen previously has decreased in volume slightly in the interval. Today, at a c omparable level, it was measured at 5.3 x 4.1 cm (6.3 x 4.8 cm previously). Even though this total v olume has decreased slightly, overall there are more numerous small nodules throughout the lungs, al l lobes, than there were before. Additionally, several of the nodules seen previously have increased in size over the interval. For example, the nodule in the left costophrenic angle laterally was pre viously 1.4 cm and today is 2.4 cm. Numerous other smaller nodules throughout the lungs have definit daly increased in size in the interval. There are no effusions. Regarding the mediastinum, there were a few small nodes seen, but they do no t appear to have changed in size. Diffuse emphysematous changes are seen throughout the lungs. No pe ricardial effusion was seen. It was difficult to confirm coronary artery calcifications due to the c ontrast given. No emboli were seen in the more proximal branches of the pulmonary arteries. The scan went a short ways into the upper abdomen. Bilateral adrenal nodules are present and have in creased in size in the interval. Today, the right measures close to 2 cm in size and the left measur es 2.3 cm. The liver was seen in part and those visible areas shown appear normal. The spleen was no rmal in size. Sclerotic metastases are seen throughout particularly the thoracic vertebrae. These appear to have b ecome somewhat denser over time. IMPRESSION: 1. Right hilar mass slightly reduced in volume compared to the the November study; however, ther e is a definite increase in the size and number of small nodules throughout all lobes. Most remain s ubcentimeter in size. 2. Diffuse emphysematous changes. 3. Increase in size of bilateral adrenal nodules since November. 4. Sclerotic bony metastases, a bit denser and perhaps a little more extensive than previously. POS: HOME
== END 2017-03-01 08:48 | disposition home or self-care (01) ==
LOC: BURCT 08:47
PROVIDERS: ATTEND Internal Medicine Medical Oncology
DX: C34.2 Malignant neoplasm of middle lobe, bronchus or lung (principal); C79.51 Secondary malignant neoplasm of bone; R91.8 Other nonspecific abnormal finding of lung field; E27.8 Other specified disorders of adrenal gland
CPT/HCPCS: 71260; 82565

== ENCOUNTER 2017-04-12 08:29 | Outpatient (CLI) | payer MEDICARE, BC ==
--- NOTE | 2017-04-12 12:01 | CT ---
CT THORAX WITH CONTRAST: DATE: 04/12/2017 COMPARISON: 03/01/2017 HISTORY: Right middle lobe lung cancer. C34.2. TECHNIQUE: IV iodinated contrast media: 90 mL of Isovue 370. FINDINGS: The spiculated solid malignant mass at the central portion of the right middle lobe, contiguous with the right hilum, has not significantly changed in size. There has been no significant interval david nge in the very large number of pulmonary nodules. There is no interval significant change in the e xtensive metastatic osseous lesions, the vast majority of which are osteoblastic, while a few are os teolytic. No pleural effusion. Diffuse emphysematous changes, especially of the bilateral upper lo bes. Heavy coronary artery atherosclerotic calcification, especially of the LAD. No cardiomegaly o r pericardial effusion. The mildly enlarged left paratracheal or AP window lymph node is unchanged. Again noted are the extensive calcified pleural plaque consistent with previous asbestos exposure. The bilateral adrenal masses are stable. IMPRESSION: 1. No significant interval change overall. 2. Malignant lung neoplasm of right middle lobe. 3. A very large number of bilateral pulmonary metastases. 4. A very large number of skeletal metastases, the vast majority of which are osteoblastic (while a few are osteolytic). 5. Asbestos-related pleural disease. 6. Coronary atherosclerotic disease. 7. Emphysema. 8. Bilateral adrenal metastases. ELISE Garzon POS: [facility]
== END 2017-04-12 08:30 | disposition home or self-care (01) ==
LOC: BURCT 08:29
PROVIDERS: ATTEND Internal Medicine Medical Oncology
DX: C34.2 Malignant neoplasm of middle lobe, bronchus or lung (principal); C78.02 Secondary malignant neoplasm of left lung; C78.01 Secondary malignant neoplasm of right lung; C79.51 Secondary malignant neoplasm of bone; C79.72 Secondary malignant neoplasm of left adrenal gland; C79.71 Secondary malignant neoplasm of right adrenal gland; J43.9 Emphysema, unspecified; J92.0 Pleural plaque with presence of asbestos; I25.10 Atherosclerotic heart disease of native coronary artery without angina pectoris
CPT/HCPCS: 36415; 71260; 82565

== ENCOUNTER 2017-05-23 08:37 | Outpatient (CLI) | payer MEDICARE, BC ==
[2017-05-23] MEDS ORDERED: Iopamidol 370 76% 100 ML VIAL ONE (09:00)
--- NOTE | 2017-05-23 22:03 | CT ---
CT OF THE THORAX WITH CONTRAST: Date: 05-23-17 Technique: Spiral CT of the chest was performed after an injection of IV contrast. Axial slices were acquired then coronal and sagittal reconstructions were done. Comparison: 04-12-17, 03-01-17. I also reviewed the 11-28-16 study. FINDINGS: The large right middle lobe mass is fairly comparable in size today compared to its size on the March study. On the lung window images it measures about 6.3 x 3.6 cm. The overall volume does not appear to be substantially different than before. The additional mass in the left lower lobe peripherally h as definitely increased in size, being just over 1 cm in November but now measuring 4.2 cm in size. T he biggest change on this study is an increase in size and number of multiple pulmonary nodules that are scattered throughout the lungs bilaterally. Elsewhere in the lungs, no acute pneumonia was seen. There are no large pleural effusions. 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 The mediastinum showed no mass or increase in adenopathy. As before, there is some right hilar adeno hanna near the right middle lobe mass. No pericardiac fluid was seen. Coronary artery calcifications are present. There are numerous bony metastases, both sclerotic and lytic. These have not changed appreciably sin ce the February scan, but have definitely grown somewhat in size since the November study. Portions of the liver and spleen were visible in the upper abdominal images. No gross masses were se en in association with them. The gastric mucosa is uniformly thick throughout, but not unlike the pr ior study. The right adrenal nodule seen previously measures about 2.2 cm today (1.6 cm in November) and the left adrenal nodule has enlarged slightly measuring about 2.0 cm today (1.1 cm in November). IMPRESSION: 1. Definite increase in the size and number of multiple small pulmonary nodules, most of which are 1 cm or less in size. This is true even since the March study. 2. The size of the large right middle lobe mass is approximately the same. The size of the left lowe r lobe mass peripherally has increased in size over time. 3. Bony metastases as noted above. Similar in appearance to the March study, but slightly larger than the November exam. 4. Not mentioned above but noted was that the T9 vertebral body is beginning to show very slight com pression of its superior endplate. This was not present in November. POS: HOME
== END 2017-05-23 08:38 | disposition home or self-care (01) ==
LOC: BURCT 08:37
PROVIDERS: ATTEND Internal Medicine Medical Oncology
DX: C34.2 Malignant neoplasm of middle lobe, bronchus or lung (principal); C79.51 Secondary malignant neoplasm of bone
CPT/HCPCS: 71260; A4216

== ENCOUNTER 2017-06-15 15:10 | Outpatient (CLI) | payer MEDICARE, BC ==
[2017-06-15 16:27] LABS: Band 8 % (5-11); Hemoglobin 7.5 g/dL (14.0-18.0); Lymphocytes 10 % (21-51); MDiff Complete? YES; Macrocytosis SLIGHT = 6-15 cells (100X) (0-5/hpf); Mean Corpuscular HGB CONC 35.6 g/dL (32.0-36.0); Mean Corpuscular Hemoglobin 32.8 pg (27.0-31.0); Mean Platelet Volume 6.1 fL (7.4-10.4); Metamyelocyte 2 % (0-0); Monocytes 6 % (0-10); Neutrophil 74 % (42-75); Platelet Count 185 thou/uL (130-400); Polychromasia SLIGHT = 2-3 cells (100X) (0-2/hpf); RBC Distribution Width 18.8 % (11.5-14.5); Red Blood Cell (RBC) Count 2.29 mill/uL (4.70-6.10); Tear Drops SLIGHT = 2-5 cells (100X) (0-1/hpf); White Blood Cell (WBC) Count 23.2 thou/uL (4.8-10.8)
== END 2017-06-15 15:11 | disposition home or self-care (01) ==
LOC: BURLAB 15:10
PROVIDERS: ATTEND Internal Medicine Medical Oncology
DX: C34.2 Malignant neoplasm of middle lobe, bronchus or lung (principal)
CPT/HCPCS: 36415; 85025